=== PATIENT | male | born 1955 | race Caucasian/White ===

== ENCOUNTER 2020-04-01 12:38 | Inpatient (IN) ==
[2020-04-01] MEDS ORDERED: 0.9 % Sodium Chloride 500 ML IVC ONE (13:04)
[2020-04-01] MEDS ORDERED: *HR* FentaNYL (PF) 100 MCG/2 ML VIAL IVP ONE (13:04)
[2020-04-01] MEDS ORDERED: *HR* HYDROmorphone (PF) 1 MG/ML SYRINGE IVP ONE ×3 (13:34→16:42)
[2020-04-01 14:46] LABS: Basophils % 0.2 %; Hematocrit 53.9 % (37.5-50.1); Hemoglobin 18.2 g/dL (12.9-16.9); Immature Granulocytes % 0.8 % (0-4); Lymphocytes # 0.5 K/mcL (0.6-4.6); Lymphocytes % 2.1 %; Mean Corpuscular HGB Conc 33.8 g/dL (31.6-35.5); Mean Corpuscular Hemoglobin 29.9 pg (28.0-33.3); Mean Corpuscular Volume 88.5 fL (83.0-100.0); Monocytes # 1.6 K/mcL (0.0-1.3); Neutrophils # 20.2 K/mcL (1.6-8.9); Platelet Count 200 K/mcL (140-400); Red Blood Count 6.09 M/mcL (4.19-5.50); Red Cell Distribution Width 13.2 % (11.5-14.5); Segmented Neutrophils % 89.9 %; White Blood Count 22.5 K/mcL (4.3-11.1)
[2020-04-01 15:06] LABS: BUN/Creatinine Ratio 46 (6-26); Blood Urea Nitrogen 38 mg/dL (8-23); C-Reactive Protein 28 mg/L (Less than 10); Calcium 9.8 mg/dL (8.6-10.3); Carbon Dioxide 23 mEq/L (23-29); Chloride 102 mEq/L (98-107); Creatine Kinase 287 Units/L (30-223); Glucose 166 mg/dL (70-105); Osmolality,Calculated 293 (280-300); Potassium 3.6 mEq/L (3.5-5.1); Sodium 135 mEq/L (136-145); eGFR For African Americans > 60 (> 60); eGFR For Non-African Americans > 60 (> 60)
[2020-04-01] MEDS ORDERED: Isovue-370 500 ML BOTTLE IVP ONE ×2 (15:28→18:00)
[2020-04-01] MEDS ORDERED: 0.9 % Sodium Chloride 1,000 ML IVC ONE (16:49)
[2020-04-01] MEDS ORDERED: Ketorolac 30 MG/ML VIAL IVP STA (17:05)
[2020-04-01] MEDS ORDERED: ceFAZolin 1,000 MG in Water for inj. (sterile) 10 ML IVP ONE (17:07)
[2020-04-01] MEDS ORDERED: *HR* LORazepam 2 MG/ML VIAL IVP ONE (17:15)
[2020-04-01] MEDS ORDERED: Vancomycin 2,000 MG/520 ML IV.SOLN IVPB STA (17:48)
[2020-04-01] MEDS ORDERED: Naloxone 0.4 MG/ML INJ IVP PRN (17:50)
[2020-04-01] MEDS: *HR* Heparin 5,000 UNIT/ML VIAL SQ SCH (19:57)
[2020-04-01] MEDS: ceFAZolin 2,000 MG in 0.9 % Sodium Chloride 100 ML IVPB SCH (20:12)
[2020-04-01] MEDS: *HR* OxyCODONE Immed Rel 5 MG TABLET PO PRN (20:23)
[2020-04-01 21:42] LABS: Bilirubin,Urine Small (Negative); Blood,Urine Negative (Negative); Clarity,Urine Clear (Clear); Color,Urine Dark Yellow (Yellow); Glucose,Urine (UA) 250 mg/dL (Normal); Ketones,Urine 15 mg/dL (Negative); Leukocyte Esterase,Urine Negative (Negative); Nitrite,Urine Negative (Negative); PH,Urine 5.5 pH Units (5.0-8.0); Protein,Urine 30 mg/dL (Neg-Trace); Specific Gravity,Urine > 1.030 (1.010-1.025); Urobilinogen,Urine Normal (Normal)
[2020-04-01] MEDS: Acetaminophen 325 MG TABLET PO PRN (21:42)
[2020-04-01 21:44] LABS: Bacteria,Urine None Seen per hpf (None-Few); RBC,Urine 0-3 per hpf (0-3); Squamous Epithelial Cell,Urine Many per lpf (None-Few)
[2020-04-02] MEDS ORDERED: 0.9 % Sodium Chloride 500 ML IVC ONE ×2 (00:04→05:40)
[2020-04-02] MEDS ORDERED: *HR* Promethazine 25 MG/ML VIAL IM ONE (00:06)
[2020-04-02] MEDS ORDERED: Morphine Sulfate 2 MG/ML SYRINGE IVP ONE (00:17)
[2020-04-02] MEDS ORDERED: Ketorolac 15 MG/ML VIAL IVP ONE (00:58)
[2020-04-02] MEDS: 0.9 % Sodium Chloride 1,000 ML IVC SCH ×2 (01:51→09:12)
[2020-04-02 01:58] LABS: Lymphocytes % 2.4 %
[2020-04-02 02:00] LABS: Basophils % 0.2 %; Hematocrit 51.9 % (37.5-50.1); Hemoglobin 17.1 g/dL (12.9-16.9); Immature Granulocytes % 0.8 % (0-4); Immature Platelets 2.9 % (1.1-6.1); Lymphocytes # 0.3 K/mcL (0.6-4.6); Mean Corpuscular HGB Conc 32.9 g/dL (31.6-35.5); Mean Corpuscular Hemoglobin 29.3 pg (28.0-33.3); Mean Platelet Volume 10.2 fL (9.4-12.4); Monocytes # 0.2 K/mcL (0.0-1.3); Monocytes % 1.7 %; Red Blood Count 5.83 M/mcL (4.19-5.50); Red Cell Distribution Width 13.4 % (11.5-14.5); Segmented Neutrophils % 94.9 %; White Blood Count 11.4 K/mcL (4.3-11.1)
[2020-04-02 02:11] LABS: BUN/Creatinine Ratio 40 (6-26); Blood Urea Nitrogen 37 mg/dL (8-23); Carbon Dioxide 18 mEq/L (23-29); Chloride 105 mEq/L (98-107); Glucose 106 mg/dL (70-105); Osmolality,Calculated 291 (280-300); Potassium 3.3 mEq/L (3.5-5.1); Sodium 136 mEq/L (136-145); eGFR For African Americans > 60 (> 60); eGFR For Non-African Americans > 60 (> 60)
[2020-04-02 03:04] LABS: Neutrophils # 10.8 K/mcL (1.6-8.9); Platelet Count 89 K/mcL (140-400)
[2020-04-02] MEDS: *HR* OxyCODONE Immed Rel 5 MG TABLET PO PRN ×5 (03:14→23:28)
[2020-04-02] MEDS: Acetaminophen 325 MG TABLET PO PRN ×2 (03:54→14:56)
[2020-04-02] MEDS: ceFAZolin 2,000 MG in 0.9 % Sodium Chloride 100 ML IVPB SCH ×3 (03:55→20:34)
[2020-04-02] MEDS: *HR* Heparin 5,000 UNIT/ML VIAL SQ SCH ×2 (05:24→19:22)
[2020-04-02] MEDS ORDERED: diazePAM 2 MG TABLET PO ONE (05:42)
[2020-04-02 05:52] LABS: Acinetobacter baumannii by PCR Not Detected (Not Detect); Candida albicans by PCR Not Detected (Not Detect); Candida glabrata by PCR Not Detected (Not Detect); Candida krusei by PCR Not Detected (Not Detect); Candida parapsilosis by PCR Not Detected (Not Detect); Candida tropicalis by PCR Not Detected (Not Detect); Enterobacter cloacae Cmplx PCR Not Detected (Not Detect); Enterobacteriaceae by PCR Not Detected (Not Detect); Enterococcus by PCR Not Detected (Not Detect); Escherichia coli by PCR Not Detected (Not Detect); Klebsiella oxytoca by PCR Not Detected (Not Detect); Klebsiella pneumoniae by PCR Not Detected (Not Detect); Proteus by PCR Not Detected (Not Detect); Pseudomonas aeruginosa by PCR Not Detected (Not Detect); Serratia marcescens by PCR Not Detected (Not Detect); Staphylococcus aureus by PCR Not Detected (Not Detect); Staphylococcus by PCR Not Detected (Not Detect); Streptococcus agalactiae(B)PCR Not Detected (Not Detect); Streptococcus by PCR DETECTED (Not Detect); Streptococcus pneumoniae PCR Not Detected (Not Detect); Streptococcus pyogenes (A) PCR Not Detected (Not Detect)
[2020-04-02] MEDS ORDERED: Insulin LISPRO 300 UNITS/3 ML VIAL SQ ONE (06:11)
[2020-04-02] MEDS ORDERED: Ringers Solution, Lactated 1,000 ML IVC ONE ×2 (07:20→09:55)
[2020-04-02] MEDS ORDERED: Valsartan 160 MG TABLET PO SCH (09:00)
[2020-04-02] MEDS ORDERED: hydroCHLOROthiazide 25 MG TABLET PO SCH (09:00)
[2020-04-02] MEDS: Vancomycin 2,000 MG/520 ML IV.SOLN IVPB SCH ×2 (11:44→21:12)
[2020-04-02] MEDS: Ringers Solution, Lactated 1,000 ML IVC SCH ×2 (15:51→21:17)
[2020-04-03] MEDS: ceFAZolin 2,000 MG in 0.9 % Sodium Chloride 100 ML IVPB SCH ×3 (05:09→20:41)
[2020-04-03] MEDS: Ringers Solution, Lactated 1,000 ML IVC SCH (05:10)
[2020-04-03] MEDS: *HR* Heparin 5,000 UNIT/ML VIAL SQ SCH ×2 (05:10→17:26)
[2020-04-03 05:16] LABS: Hemoglobin 16.7 g/dL (12.9-16.9); Mean Corpuscular HGB Conc 32.1 g/dL (31.6-35.5); Mean Corpuscular Volume 90.4 fL (83.0-100.0); Mean Platelet Volume 10.7 fL (9.4-12.4); Red Blood Count 5.75 M/mcL (4.19-5.50); Red Cell Distribution Width 13.9 % (11.5-14.5)
[2020-04-03] MEDS: *HR* OxyCODONE Immed Rel 5 MG TABLET PO PRN ×3 (05:17→22:25)
[2020-04-03 05:18] LABS: Platelet Count 60 K/mcL (140-400); White Blood Count 20.2 K/mcL (4.3-11.1)
[2020-04-03 05:40] LABS: Alanine Aminotransferase 45 Units/L (7-52); Albumin 3.2 g/dL (3.5-5.7); Albumin/Globulin Ratio 1.4 (1.1-2.2); Alkaline Phosphatase 67 Units/L (34-104); Aspartate Amino Transferase 91 Units/L (13-39); BUN/Creatinine Ratio 32 (6-26); Bilirubin,Direct 0.4 mg/dL (0.0-0.2); Bilirubin,Indirect 0.9 mg/dL (0.0-1.0); Bilirubin,Total 1.3 mg/dL (0.3-1.0); Blood Urea Nitrogen 27 mg/dL (8-23); Calcium 8.7 mg/dL (8.6-10.3); Carbon Dioxide 26 mEq/L (23-29); Chloride 104 mEq/L (98-107); Globulin 2.3 g/dL (2.4-3.5); Glucose 105 mg/dL (70-105); Magnesium 1.8 mg/dL (1.6-2.6); Osmolality,Calculated 283 (280-300); Phosphorous 1.6 mg/dL (2.7-4.5); Potassium 4.4 mEq/L (3.5-5.1); Sodium 134 mEq/L (136-145); Total Protein 5.5 g/dL (6.4-8.9); eGFR For African Americans > 60 (> 60); eGFR For Non-African Americans > 60 (> 60)
[2020-04-03 06:22] LABS: Acinetobacter baumannii by PCR Not Detected (Not Detect); Candida albicans by PCR Not Detected (Not Detect); Candida glabrata by PCR Not Detected (Not Detect); Candida krusei by PCR Not Detected (Not Detect); Candida parapsilosis by PCR Not Detected (Not Detect); Candida tropicalis by PCR Not Detected (Not Detect); Enterobacter cloacae Cmplx PCR Not Detected (Not Detect); Enterobacteriaceae by PCR Not Detected (Not Detect); Enterococcus by PCR Not Detected (Not Detect); Escherichia coli by PCR Not Detected (Not Detect); Klebsiella oxytoca by PCR Not Detected (Not Detect); Klebsiella pneumoniae by PCR Not Detected (Not Detect); Proteus by PCR Not Detected (Not Detect); Pseudomonas aeruginosa by PCR Not Detected (Not Detect); Serratia marcescens by PCR Not Detected (Not Detect); Staphylococcus aureus by PCR Not Detected (Not Detect); Staphylococcus by PCR Not Detected (Not Detect); Streptococcus agalactiae(B)PCR Not Detected (Not Detect); Streptococcus by PCR DETECTED (Not Detect); Streptococcus pneumoniae PCR Not Detected (Not Detect); Streptococcus pyogenes (A) PCR Not Detected (Not Detect)
[2020-04-03] MEDS ORDERED: Aminoglycoside Consult 1 EACH MC ONE (08:47)
[2020-04-03] MEDS: Vancomycin 2,000 MG/520 ML IV.SOLN IVPB SCH (09:10)
[2020-04-03] MEDS ORDERED: Perflutren Lipid Microsphere 1.3 ML in 0.9 % Sodium Chloride 8.7 ML IVP ONE (10:46)
[2020-04-03] MEDS: Ketorolac 30 MG/ML VIAL IVP PRN (22:20)
[2020-04-04 03:27] LABS: Hematocrit 49.5 % (37.5-50.1); Immature Platelets 7.2 % (1.1-6.1); Mean Corpuscular HGB Conc 32.3 g/dL (31.6-35.5); Mean Corpuscular Hemoglobin 28.9 pg (28.0-33.3); Mean Corpuscular Volume 89.5 fL (83.0-100.0); Mean Platelet Volume 11.7 fL (9.4-12.4); Red Blood Count 5.53 M/mcL (4.19-5.50); Red Cell Distribution Width 13.8 % (11.5-14.5); White Blood Count 18.5 K/mcL (4.3-11.1)
[2020-04-04 03:40] LABS: BUN/Creatinine Ratio 35 (6-26); Blood Urea Nitrogen 28 mg/dL (8-23); Calcium 8.3 mg/dL (8.6-10.3); Carbon Dioxide 22 mEq/L (23-29); Chloride 105 mEq/L (98-107); Glucose 97 mg/dL (70-105); Magnesium 2.2 mg/dL (1.6-2.6); Osmolality,Calculated 283 (280-300); Phosphorous 1.8 mg/dL (2.7-4.5); Potassium 4.1 mEq/L (3.5-5.1); Sodium 134 mEq/L (136-145); eGFR For African Americans > 60 (> 60); eGFR For Non-African Americans > 60 (> 60)
[2020-04-04] MEDS: ceFAZolin 2,000 MG in 0.9 % Sodium Chloride 100 ML IVPB SCH ×3 (05:00→21:43)
[2020-04-04] MEDS: *HR* Heparin 5,000 UNIT/ML VIAL SQ SCH ×2 (05:01→17:54)
[2020-04-04] MEDS ORDERED: Lidocaine Viscous Oral Soln 15 ML SOLUTION MM PRN (08:43)
[2020-04-04] MEDS ORDERED: 0.9 % Sodium Chloride 500 ML IVC ONE (08:44)
[2020-04-04] MEDS: *HR* Midazolam HCl 5 MG/5 ML VIAL IVP PRN ×3 (09:20→09:35)
[2020-04-04] MEDS: *HR* FentaNYL (PF) 100 MCG/2 ML VIAL IVP PRN ×3 (09:20→09:30)
[2020-04-04] MEDS: Ketorolac 30 MG/ML VIAL IVP PRN (10:19)
[2020-04-04] MEDS: *HR* OxyCODONE Immed Rel 5 MG TABLET PO PRN ×3 (11:56→22:42)
[2020-04-04 15:09] LABS: Source,Synovial Fluid left knee arthrocent
[2020-04-04 16:00] LABS: Appearance,Synovial Fluid Cloudy (Clear-Hazy); Color,Synovial Fluid Red (Straw)
[2020-04-05 00:59] LABS: Hematocrit 46.8 % (37.5-50.1); Hemoglobin 15.7 g/dL (12.9-16.9); Mean Corpuscular HGB Conc 33.5 g/dL (31.6-35.5); Mean Corpuscular Hemoglobin 29.4 pg (28.0-33.3); Mean Corpuscular Volume 87.6 fL (83.0-100.0); Mean Platelet Volume 10.8 fL (9.4-12.4); Platelet Count 102 K/mcL (140-400); Red Blood Count 5.34 M/mcL (4.19-5.50); Red Cell Distribution Width 13.9 % (11.5-14.5); White Blood Count 14.9 K/mcL (4.3-11.1)
[2020-04-05 01:20] LABS: BUN/Creatinine Ratio 45 (6-26); Blood Urea Nitrogen 26 mg/dL (8-23); Calcium 8.3 mg/dL (8.6-10.3); Carbon Dioxide 22 mEq/L (23-29); Chloride 104 mEq/L (98-107); Glucose 91 mg/dL (70-105); Osmolality,Calculated 282 (280-300); Potassium 3.9 mEq/L (3.5-5.1); Sodium 134 mEq/L (136-145); eGFR For African Americans > 60 (> 60); eGFR For Non-African Americans > 60 (> 60)
[2020-04-05] MEDS: *HR* OxyCODONE Immed Rel 5 MG TABLET PO PRN ×5 (05:15→17:46)
[2020-04-05] MEDS: *HR* Heparin 5,000 UNIT/ML VIAL SQ SCH ×2 (05:16→17:00)
[2020-04-05] MEDS: ceFAZolin 2,000 MG in 0.9 % Sodium Chloride 100 ML IVPB SCH ×2 (05:17→11:56)
[2020-04-06] MEDS: ceFAZolin 2,000 MG in 0.9 % Sodium Chloride 100 ML IVPB SCH ×3 (00:10→11:57)
[2020-04-06 03:09] LABS: Hematocrit 45.3 % (37.5-50.1); Hemoglobin 14.8 g/dL (12.9-16.9); Mean Corpuscular HGB Conc 32.7 g/dL (31.6-35.5); Mean Corpuscular Hemoglobin 29.3 pg (28.0-33.3); Mean Corpuscular Volume 89.7 fL (83.0-100.0); Mean Platelet Volume 10.2 fL (9.4-12.4); Platelet Count 130 K/mcL (140-400); Red Blood Count 5.05 M/mcL (4.19-5.50); Red Cell Distribution Width 14.1 % (11.5-14.5); White Blood Count 11.7 K/mcL (4.3-11.1)
[2020-04-06] MEDS: *HR* OxyCODONE Immed Rel 5 MG TABLET PO PRN ×4 (03:19→19:58)
[2020-04-06 03:35] LABS: BUN/Creatinine Ratio 38 (6-26); Blood Urea Nitrogen 22 mg/dL (8-23); Calcium 8.3 mg/dL (8.6-10.3); Carbon Dioxide 20 mEq/L (23-29); Chloride 104 mEq/L (98-107); Glucose 112 mg/dL (70-105); Osmolality,Calculated 278 (280-300); Potassium 3.8 mEq/L (3.5-5.1); Sodium 132 mEq/L (136-145); eGFR For African Americans > 60 (> 60); eGFR For Non-African Americans > 60 (> 60)
[2020-04-06] MEDS: *HR* Heparin 5,000 UNIT/ML VIAL SQ SCH ×2 (06:14→18:47)
[2020-04-06] MEDS ORDERED: Gadolinium Contrast Agent (WT Based) IV PRN (07:46)
[2020-04-06] MEDS ORDERED: *HR* Metoprolol 5 MG/5 ML VIAL IVP ONE (08:09)
[2020-04-06] MEDS: Ketorolac 30 MG/ML VIAL IVP PRN ×2 (09:45→20:02)
[2020-04-06] MEDS ORDERED: *HR* Labetalol 20 MG/4 ML SYRINGE IVP SCH (12:30)
[2020-04-06] MEDS ORDERED: Valsartan 160 MG, hydroCHLOROthiazide 12.5 MG PO SCH (12:30)
[2020-04-06] MEDS ORDERED: *HR* Labetalol 20 MG/4 ML SYRINGE IVP PRN (12:50)
[2020-04-06 12:52] LABS: INR 1.2; Prothrombin Time 13.4 Seconds (9.4-12.1)
[2020-04-06] MEDS ORDERED: 0.9 % Sodium Chloride 500 ML ONE (14:10)
[2020-04-06] MEDS: Metoprolol XL (24 HR) Succ 50 MG TAB.ER.24H PO SCH (15:06)
[2020-04-06] MEDS: cefTRIAXone 2,000 MG in 0.9 % Sodium Chloride Mini Bag 100 ML IVPB SCH (15:06)
[2020-04-06 17:03] LABS: Bilirubin,Urine Moderate (Negative); Blood,Urine Small (Negative); Clarity,Urine Clear (Clear); Color,Urine Orange (Yellow); Glucose,Urine (UA) Normal (Normal); Ketones,Urine Trace mg/dL (Negative); Leukocyte Esterase,Urine Small (Negative); Nitrite,Urine Positive (Negative); PH,Urine 5.5 pH Units (5.0-8.0); Protein,Urine 30 mg/dL (Neg-Trace); Specific Gravity,Urine > 1.030 (1.010-1.025); Urobilinogen,Urine Normal (Normal)
[2020-04-06 17:05] LABS: Bacteria,Urine None Seen per hpf (None-Few); Hyaline Casts,Urine None Seen per lpf (None-Few); Squamous Epithelial Cell,Urine Many per lpf (None-Few)
[2020-04-07] MEDS: *HR* OxyCODONE Immed Rel 5 MG TABLET PO PRN ×3 (02:30→12:57)
[2020-04-07 05:15] LABS: Hemoglobin 15.1 g/dL (12.9-16.9); Mean Corpuscular HGB Conc 32.1 g/dL (31.6-35.5); Mean Corpuscular Hemoglobin 29.2 pg (28.0-33.3); Mean Corpuscular Volume 90.9 fL (83.0-100.0); Platelet Count 189 K/mcL (140-400); Red Blood Count 5.17 M/mcL (4.19-5.50); Red Cell Distribution Width 14.1 % (11.5-14.5)
[2020-04-07] MEDS: *HR* Heparin 5,000 UNIT/ML VIAL SQ SCH (05:30)
[2020-04-07 05:36] LABS: Albumin 2.8 g/dL (3.5-5.7); Albumin/Globulin Ratio 0.9 (1.1-2.2); Bilirubin,Direct 1.2 mg/dL (0.0-0.2); Bilirubin,Indirect 1.2 mg/dL (0.0-1.0); Bilirubin,Total 2.4 mg/dL (0.3-1.0); Total Protein 5.8 g/dL (6.4-8.9)
[2020-04-07 05:38] LABS: BUN/Creatinine Ratio 31 (6-26); Blood Urea Nitrogen 24 mg/dL (8-23); Calcium 8.6 mg/dL (8.6-10.3); Carbon Dioxide 27 mEq/L (23-29); Chloride 104 mEq/L (98-107); Glucose 104 mg/dL (70-105); Osmolality,Calculated 284 (280-300); Potassium 4.5 mEq/L (3.5-5.1); Sodium 135 mEq/L (136-145); eGFR For African Americans > 60 (> 60); eGFR For Non-African Americans > 60 (> 60)
[2020-04-07] MEDS: Metoprolol XL (24 HR) Succ 50 MG TAB.ER.24H PO SCH (08:29)
[2020-04-07] MEDS: cefTRIAXone 2,000 MG in 0.9 % Sodium Chloride Mini Bag 100 ML IVPB SCH (08:40)
[2020-04-07] MEDS ORDERED: Isovue-370 500 ML BOTTLE IVP ONE (08:46)
[2020-04-07 16:09] VITALS: BP 149/77
[2020-04-08 12:37] LABS: Hepatitis B Surface Antigen Nonreactive (Nonreactive)
[2020-04-08 13:06] LABS: Hepatitis B Core IgM Nonreactive (Nonreactive)
[2020-04-08 13:07] LABS: Hepatitis C Virus Antibody Nonreactive (Nonreactive)
[2020-04-08 13:08] LABS: Hepatitis A Antibody IgM Nonreactive (Nonreactive)
== END 2020-04-07 18:44 | disposition home health service (06) | DRG 871 ==
LOC: EMEROOARM 12:38 → 3NENU 12:38 → 2ANU 04-02 06:34 → SUATTDRO 04-02 13:30
PROVIDERS: ADMIT Internal Medicine; ATTEND Internal Medicine
PROC: IRFLUID (2020-04-06 12:00)